=== PATIENT | male | born 1940 | race Caucasian/White ===

== ENCOUNTER 2021-05-01 09:44 | Day surgery (SDC) | payer MEDICARE, OTHER ==
[~2021-05-01] VITALS: Ht 172.7 cm; Wt 78.0 kg
[2021-05-01] MEDS ORDERED: OMEP20ER (10:23)
[2021-05-01] MEDS ORDERED: FINA5 (10:23)
[2021-05-01] MEDS ORDERED: Amlodipine Bes2.5 MG (10:23)
[2021-05-01] MEDS ORDERED: Lovastatin20 MG (10:23)
[2021-05-01] MEDS ORDERED: GABA300T24 (10:24)
[2021-05-01] MEDS ORDERED: Aspir 8181 MG (10:24)
== END 2021-05-01 11:06 | disposition home or self-care (01) ==
LOC: ORSCSDS 09:44
PROVIDERS: Anesthesiology
PROC: 3E0R33Z Introduction of Anti-inflammatory into Spinal Canal, Percutaneous Approach (ICD-10-PCS; principal; 2021-05-01 10:45)
DX: M54.16 Radiculopathy, lumbar region (principal); M48.061 Spinal stenosis, lumbar region without neurogenic claudication; I10 Essential (primary) hypertension; K21.9 Gastro-esophageal reflux disease without esophagitis; E78.00 Pure hypercholesterolemia, unspecified; F32.A Depression, unspecified; F17.210 Nicotine dependence, cigarettes, uncomplicated; Z79.82 Long term (current) use of aspirin; Z79.899 Other long term (current) drug therapy
CPT/HCPCS: J1040

== ENCOUNTER 2021-09-19 09:26 | Day surgery (SDC) | payer MEDICARE, OTHER ==
[~2021-09-19 09:26] MED LIST: Amlodipine Bes2.5 MG; Aspir 8181 MG; FINA5; GABA300T24; Lovastatin20 MG; OMEP20ER
== END 2021-09-19 23:25 | disposition home or self-care (01) ==
LOC: CT 09:26
PROVIDERS: Anesthesiology
DX: J90 Pleural effusion, not elsewhere classified (principal); R91.8 Other nonspecific abnormal finding of lung field; Z20.822 Contact with and (suspected) exposure to COVID-19
CPT/HCPCS: 87426; 87811

== ENCOUNTER 2021-10-06 09:03 | Day surgery (SDC) | payer MEDICARE, OTHER ==
--- NOTE | 2021-10-06 11:15 | NUR ---
ARRIVED TO ROOM VIA TRISH, PT LYING ON PRONE, REPORT HAVING SOME SOB BUT STATES IT'S NOT MORE THAN USUAL, PT STATES HE SMOKES AND IS NORMALLY SOB, LS CLEAR, SLIGHTYL COARSE AT BASES, DENIES ANY PAIN, CONT. TO MONITOR FOR ANY CHANGES.
--- NOTE | 2021-10-06 13:14 | NUR ---
VSS, DENIES ANY SOB, PT HAD F/U XRAY, OK TO DC HOME PER RADIOLOGY, DC INSTRUCTIONS GIVEN, VERBALIZED UNDERSTANDING.
== END 2021-10-06 23:03 | disposition home or self-care (01) ==
LOC: CT 09:03
PROVIDERS: Anesthesiology
DX: C34.12 Malignant neoplasm of upper lobe, left bronchus or lung (principal); Z87.891 Personal history of nicotine dependence; Z79.82 Long term (current) use of aspirin; Z79.899 Other long term (current) drug therapy
CPT/HCPCS: 32408; 71045; 77012; 87426; 87811; 88305; 88341; 88342